=== PATIENT | female | born 1985 | race Two or more races ===

== ENCOUNTER 2023-10-24 05:45 | Day surgery (SDC) | payer OTHER ==
[~2023-10-24] VITALS: Ht 157.5 cm; Wt 64.9 kg
[~2023-10-24 05:45] MED LIST: CABERGOLINE0.5 MG PO; PEPCID AC10 MG PO; SYNTHROID75 MCG PO
[2023-10-24] MEDS ORDERED: POVIDONE-IODINE 118 ML BOTT TOP ONE ×2 (12:48→14:00)
[2023-10-24] MEDS ORDERED: IBU800 MG PO (14:58)
== END 2023-10-24 17:45 | disposition home or self-care (01) ==
LOC: CIR.AMB 05:45
PROVIDERS: ATTEND Obstetrics & Gynecology Gynecology
DX: Z30.2 Encounter for sterilization (principal); Z64.1 Problems related to multiparity; Z88.2 Allergy status to sulfonamides; Z88.1 Allergy status to other antibiotic agents; Z20.822 Contact with and (suspected) exposure to COVID-19